=== PATIENT | male | born 1955 | race Two or more races ===

== ENCOUNTER 2017-08-22 16:06 | Emergency (ER) | payer SELFPAY ==
[2017-08-22 16:21] VITALS: BP 122/81
[2017-08-22] MEDS ORDERED: KETOROLAC TROMETHAMINE 60 MG/2 ML VIAL IM ONE (17:06)
--- NOTE | 2017-08-22 17:07 | ED Physician Documentation ---
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 C/O pain in left ankle and right wrist.) - ROS CONST: no problems NEURO: denies: dizziness, anxiety, depression, other MS/SKIN/LYMPH: ankle swelling (left), other (right wrist pain). denies: weakness, numbness, neck pain, back pain, leg swelling, rash EYES/ENT: none CVS/RESP: none GI/: denies: problems urinating, nausea, vomiting, other - PAST HX Past History: other (HTN) Allergies/Adverse Reactions: Allergies Allergy/AdvReac Type Severity Reaction Status Date / Time No Known Allergies Allergy Verified 08/22/17 16:21 Home Medications: Ambulatory Orders Medication Instructions Recorded Benazepril/Hydrochlorothiazide 1 tab PO DAILY 08/22/17 [Lotensin Hct 5-6.25 Tablet] amLODIPine BESYLATE [Norvasc] 1 tab PO DAILY 08/22/17 - SOCIAL HX Smoking History: cigarettes - FAMILY HX Family History: denies: none - VITAL SIGNS Vital Signs: Vital Signs Temp Pulse Resp BP Pulse Ox 70 17 122/81 97 08/22/17 16:10 08/22/17 16:10 08/22/17 16:10 08/22/17 16:10 - REVIEWED ASSESSMENTS Nursing Assessment Reviewed: Yes Vitals Reviewed: Yes ED Results Lab/Radiology - Radiology Radiology Impressions: Examination: Plain film right wrist History: RT WRIST, PAIN IN WRIST AFTER FALL FROM TRUCK TODAY (Hx) Comparison exams: None available Findings: 3 views the right wrist demonstrate normal cortical margins. Articular degenerative changes. No fracture. No dislocation. No soft tissue abnormality. Impression: Articular degenerative changes. No acute osseous abnormality Electronically signed on August 22, 2017 4:50:29 PM CDT by: Jos Wylie Examination: Plain film left ankle History: LEFT ANKLE, PAIN IN LEFT ANKLE AFTER FALL FROM TRUCK TODAY (Hx) Findings: 3 views of the left ankle demonstrates normal cortical margins. No fracture or dislocation. Talar dome is intact. Calcaneal spurs. No soft tissue swelling. No joint effusion. Impression: Degenerative changes. No acute osseous process. Electronically signed on August 22, 2017 4:51:47 PM CDT by: Jos Wylie - Orders Orders: ED Orders Category Date Time Status Cesar Wrap Affected Extremity 1T Care 08/22/17 17:03 Active ANKLE 3 VIEWS OR MORE [RAD] Stat Exams 08/22/17 Ordered WRIST 3 VIEWS OR MORE [RAD] Stat Exams 08/22/17 Ordered Ketorolac Tromethamine [Toradol] Med 08/22/17 17:06 Once 60 mg IM NOW ONE Fall Physical Exam - Physical Exam General Appearance: mild distress Head: non-tender, no swelling, no obvious injury Neck: non-tender, painless ROM, trachea midline Eye: LARRY, EOMI, lids & conjunct. nml ENT: nml external inspection, no dental injury Resp/CVS: chest non-tender, no ecchymosis, breath sounds nml, no resp. distress , heart sounds nml Abdomen: soft, no organomegaly, normal bowel sounds, no abdominal bruit, no distension Neuro: oriented x3, CN's nml as tested, sensation nml, motor nml, mood/affect nml, pickle cutter nml, reflexes nml, pickle cutter symmetrical Skin: color nml, no rash, nml palp., dry Back: normal inspection, no CVA tenderness Extremities: atraumatic, pelvis stable, hips non-tender, nml ROM, nml color/temp , painful weight bearing (on left ankle), other (right wrist with mild edema; tender to palpation) - Oneill Coma Score Eyes Open: Spontaneous Speech: Oriented Motor: Obeys Commands Discharge Clincal Impression: Fall Qualifiers: Encounter type: initial encounter Qualified Code(s): W19.XXXA - Unspecified fall, initial encounter Left ankle sprain Qualifiers: Encounter type: initial encounter Involved ligament of ankle: unspecified ligament Qualified Code(s): S93.402A - Sprain of unspecified ligament of left ankle, initial encounter Sprain of right wrist Qualifiers: Encounter type: initial encounter Qualified Code(s): S63.501A - Unspecified sprain of right wrist, initial encounter Referrals: Primary Doctor,No [Primary Care Provider] - 2 Days Additional Instructions: Ice Rest Elevation If you are unable to bear weight and continuing to have significant pain on day 3-4; see your PCP for re-evaluation and additional xrays. You may use Tylenol every 4hour as needed for pain. Limit your dose to less than 4 G per day. Alternate with Ibuprofen 600-800mg three times a day with food as needed. Do not take for more than 5 days in a row. Condition: Stable Disposition: 01 HOME, SELF-CARE Decision to Admit: NO Decision Time: 17:07
--- NOTE | 2017-08-22 18:20 | Diagnostic Imaging Report ---
ARIC RODRIGUEZ (REGISTERED REPRESENTATIVE) - ER [facility] [address] [facility].[address] [address] Report Submission Date: August 22, 2017 4:50:29 PM CDT Patient Study Name: CINDY LIPSCOMB Date: August 22, 2017 4:22:00 PM CDT Modality Type: DX Gender: M Description: UPPER EXTREMITY : 59 Institution: [facility] Physician: ARIC RODRIGUEZ) - ER Examination: Plain film right wrist History: RT WRIST, PAIN IN WRIST AFTER FALL FROM TRUCK TODAY (Hx) Comparison exams: None available Findings: 3 views the right wrist demonstrate normal cortical margins. Articular degenerative changes. No fracture. No dislocation. No soft tissue abnormality. Impression: Articular degenerative changes. No acute osseous abnormality Electronically signed on August 22, 2017 4:50:29 PM CDT by: Jos BAEZ
--- NOTE | 2017-08-22 18:21 | Diagnostic Imaging Report ---
ARIC RODRIGUEZ (SENIOR SYSTEMS ADMINISTRATOR) - ER [facility] [address] [facility].[address] [address] Report Submission Date: August 22, 2017 4:51:47 PM CDT Patient Study Name: CINDY LIPSCOMB Date: August 22, 2017 4:28:08 PM CDT Modality Type: DX Gender: M Description: LOWER EXTREMITY : 59 Institution: [facility] Physician: ARIC RODRIGUEZ (SENIOR SYSTEMS ADMINISTRATOR) - ER Examination: Plain film left ankle History: LEFT ANKLE, PAIN IN LEFT ANKLE AFTER FALL FROM TRUCK TODAY (Hx) Findings: 3 views of the left ankle demonstrates normal cortical margins. No fracture or dislocation. Talar dome is intact. Calcaneal spurs. No soft tissue swelling. No joint effusion. Impression: Degenerative changes. No acute osseous process. Electronically signed on August 22, 2017 4:51:47 PM CDT by: Jos BAEZ
== END 2017-08-22 17:20 | disposition home or self-care (01) ==
LOC: ED 16:06
DX: S93.402A Sprain of unspecified ligament of left ankle, initial encounter (principal); S63.501A Unspecified sprain of right wrist, initial encounter; W19.XXXA Unspecified fall, initial encounter; Y92.524 Gas station as the place of occurrence of the external cause
CPT/HCPCS: 73110; 73610; J1885; 96372; 99284